=== PATIENT | female | born 2000 | race American Indian/Alaskan Native ===

== ENCOUNTER 2021-04-26 21:23 | Emergency (ER) | payer SELFPAY ==
[2021-04-26 22:59] VITALS: BP 124/74
[2021-04-26 23:53] LABS: Basophils % (Auto) 0.6 % (0.0-1.8); Eosinophils # (Auto) 0.3 K/mm3 (0.0-0.4); Eosinophils % (Auto) 3.3 % (0.0-4.3); Hematocrit 28.6 % (30.3-42.9); Hemoglobin 9.5 gm/dl (10.1-14.3); Lymphocytes % (Auto) 34.3 % (13.4-35.0); Mean Corpuscular HGB Conc 33 % (30-34); Mean Corpuscular Volume 74 fl (79-97); Monocytes # (Auto) 0.8 K/mm3 (0.0-0.8); Monocytes % (Auto) 8.6 % (0.0-7.3); Platelet Count 321 K/mm3 (140-440); Red Blood Count 3.85 M/mm3 (3.65-5.03); Red Cell Distribution Width 18.6 % (13.2-15.2)
--- NOTE | 2021-04-27 00:59 | Emergency Department Report ---
ED General Adult HPI - General Chief complaint: Urogenital-Female Stated complaint: ABD PAIN, NO CYCLE Time Seen by Provider: 04/27/21 00:54 Source: patient Mode of arrival: Ambulatory Limitations: No Limitations - History of Present Illness Initial comments: 20-year-old female patient presents emergency department with complaints of abdominal pain for 2 days. Pain is primarily localized to the left lower quadrant. Patient also states her menstrual cycle is 25 days late. Patient has not taken a test. She does not use contraception. She is sexually active. She is not concerned about STD exposure. No history of prior abdominal surgeries. Denies fever, chills, nausea, vomiting, diarrhea, constipation, vaginal bleeding. Denies all other complaints at this time. - Related Data Allergies Allergy/AdvReac Type Severity Reaction Status Date / Time No Known Allergies Allergy Unverified 04/26/21 22:59 ED Review of Systems ROS: Stated complaint: ABD PAIN, NO CYCLE Other details as noted in HPI Other: GENERAL: Negative for fever. CARDIOVASCULAR: Negative for chest pain. PULMONARY: Negative for shortness of breath. GASTROINTESTINAL: Positive for abdominal pain. GENITOURINARY: Positive for irregular menses. MUSCULOSKELETAL: Negative for back pain. NEUROLOGICAL: Negative for headache. INTEGUMENTARY: Negative for rash. ED Past Medical Hx - Past Medical History Previous Medical History?: No - Surgical History Past Surgical History?: No - Social History Smoking Status: Never Smoker Substance Use Type: None ED Physical Exam - General Limitations: No Limitations - Other Other exam information: General: Awake and alert. No acute distress. Smiling and laughing. Head: Atraumatic, normocephalic. Eyes: EOMI. Pupils are equal and round. Normal sclera and conjunctiva. ENT: Oral mucosa is moist. Normal pharyngeal exam. Neck: Supple. No lymphadenopathy. Pulmonary: No respiratory distress. Clear to auscultation bilaterally. Cardiac: Regular rate and rhythm. Pulses are palpable and equal bilaterally. No lower extremity cyanosis or edema. Skin: Warm and dry. No rashes. Abdomen: Soft, non-tender, non-protuberant. No guarding, rigidity, or rebound. Bowel sounds are normal. No organomegaly or masses noted. McBurney's point is n ontender. Pinedo sign is negative. Back: Normal alignment. No CVA tenderness. Extremities: Symmetrical. Full range of motion intact. Neurological: Alert and oriented, appropriately interactive, no focal deficits. Psych: Cooperative. Appropriate mood and affect. Speech is evenly metered. Thoughts are logically construed. ED Course Vital Signs 04/26/21 04/27/21 22:54 01:50 Temperature 99.2 F Pulse Rate 85 90 Respiratory 16 18 Rate Blood Pressure 124/74 O2 Sat by Pulse 100 98 Oximetry ED Medical Decision Making - Lab Data Result diagrams: 04/26/21 23:15 - Medical Decision Making Differential diagnosis including but not limited to: , ovarian cyst/torsion, urinary tract infection, pyelonephritis, nephrolithiasis On reevaluation, patient remains stable. Repeat abdominal exam is benign. She is afebrile, normal vital signs, no distress. Hemoglobin is within normal limits. test is negative. Urinalysis shows microscopic hematuria without evidence of infection. STD testing is currently unavailable at this facility and patient states she is not concerned about STD exposure. No clinical indication for further diagnostic work-up on an emergent basis at this time. Patient will be discharged home and referred to [facility] for further evaluation and management of irregular menses and hematuria on an outpatient basis. Patient expressed understanding and is agreeable to plan of care. Strict return precautions provided. Repeat exam is unremarkable and benign. History, exam, diagnostic testing, and current condition do not suggest worrisome pathology to warrant further testing, continued ED treatment, admission, or surgical evaluation at this point. Given the low probability of a significant medical illness, it would be more likely to result in harm than benefit to perform further testing at this stage. Discussed findings, presumptive diagnosis, need for follow-up and specific signs/symptoms that should prompt immediate return to the emergency department. Instructions were explained in detail to the patient in addition to giving written discharge information. Patient expressed understanding and was given the opportunity to ask questions, all of which were satisfactorily answered prior to discharge home. Critical care attestation.: If time is entered above; I have spent that time in minutes in the direct care of this critically ill patient, excluding procedure time. ED Disposition Clinical Impression: Irregular menses Hematuria Qualifiers: Hematuria type: unspecified type Qualified Code(s): R31.9 - Hematuria, unspecified Disposition: TO HOME OR SELFCARE Is pt being admited?: No Does the pt Need Aspirin: No Condition: Stable Instructions: Menstruation, Hematuria, Adult Additional Instructions: Take Tylenol every 4 hours as needed for pain. Follow-up with gynecology this week. Call Thursday to schedule an appointment. See referral information below. Return to the emergency department immediately for new or worsening symptoms. Referrals: [facility] [Provider Group] - 3-5 Days [facility] [Provider Group] - 3-5 Days Time of Disposition: 01:34
[2021-04-27 01:10] LABS: Bilirubin,Urine NEG (Negative); Blood,Urine MOD (Negative); Color,Urine Straw (Yellow); Mucus,Urine FEW /HPF; Protein,Urine <15 mg/dL mg/dL (Negative)
== END 2021-04-27 01:50 | disposition home or self-care (01) ==
LOC: ED 21:23
DX: N92.6 Irregular menstruation, unspecified (principal); R31.9 Hematuria, unspecified
CPT/HCPCS: 36415; 81001; 84702; 85025; 86900; 86901; 99283